=== PATIENT | male | born 1965 | race Caucasian/White ===

== ENCOUNTER 2017-03-06 16:41 | Emergency (ER) | payer BC ==
[2017-03-06] MEDS ORDERED: HYDROcodone/ACETAMIN 5-325 MG* 1 TAB PO ONE (17:50)
--- NOTE | 2017-03-06 17:57 | RAD ---
INDICATION: Proximal humerus pain after falling 8 feet COMPARISON: None. TECHNIQUE: 4 views of the left shoulder were obtained. FINDINGS: The left acromioclavicular joint is widened just under 8 mm. The distal clavicle is displaced half a bone width superior relative to the acromion. The remaining visualized bones are intact and appropriately aligned. IMPRESSION: IN THE CORRECT CLINICAL SETTING THESE RADIOGRAPHIC FINDINGS COULD BE CONSISTENT WITH A GRADE 2 AC SEPARATION INJURY. If the patient's symptoms persist, follow-up imaging is recommended.
--- NOTE | 2017-03-06 17:58 | RAD ---
INDICATION: Low back pain after falling 8 feet COMPARISON: None. TECHNIQUE: 5 views of the lumbar spine were obtained. FINDINGS: The vertebra are in normal alignment. No fracture is seen. Disc spaces appear maintained. IMPRESSION: No evidence of fracture or subluxation.
[2017-03-06 18:23] VITALS: BP 179/116
--- NOTE | 2017-03-06 18:48 | UC ---
Shoulder Pain HPI - HPI Summary HPI Summary: Fell through a week floor landed on back on left shoulder--did not hit head not LOC - History of Current Complaint Chief Complaint: UCTrauma Stated Complaint: BACK & SHOULDER INJURIES FROM FALL Time Seen by Provider: 03/06/17 16:57 Hx Obtained From: Patient Onset/Duration: Sudden Onset, Lasting Minutes - 30 mins prior to arrival Timing: Constant Severity Initially: Moderate Severity Currently: Moderate Location Of Pain: Is Discrete @ - left shoulder and back Pain Intensity: 7 Character: Aching, Stiffness Aggravating Factor(s): Movement - of left shoulder Alleviating Factor(s): Nothing Associated Signs And Symptoms: Positive: Negative Related History: Dominant Hand Right - Allergies/Home Medications Allergies/Adverse Reactions: Allergies Allergy/AdvReac Type Severity Reaction Status Date / Time No Known Allergies Allergy Verified 03/06/17 16:54 Home Medications: Home Medications Lisinopril/HCTZ 11/29.5(NF) [Zestoretic 11/29.5(NF)] 1 tab PO DAILY 03/06/17 [ History Confirmed 03/06/17] PMH/Surg Hx/FS Hx/Imm Hx Previously Healthy: No Cardiovascular History: Hypertension - Surgical History Surgical History: None - Family History Known Family History: Positive: None - Social History Occupation: Employed Full-time Lives: With Family Alcohol Use: Weekly Substance Use Type: None Smoking Status (MU): Former Smoker Review of Systems Constitutional: Negative Skin: Negative Eyes: Negative ENT: Negative Respiratory: Negative Cardiovascular: Negative Gastrointestinal: Negative Genitourinary: Negative Motor: Decreased ROM - left shoulder Neurovascular: Negative Musculoskeletal: Negative, Myalgia - muscles in low back no spine tenderness Neurological: Negative Psychological: Negative Is Patient Immunocompromised?: No All Other Systems Reviewed And Are Negative: Yes Physical Exam Triage Information Reviewed: Yes Appearance: Well-Appearing, Well-Nourished, Pain Distress - moderate Vital Signs: Initial Vital Signs Temp 98.3 F 03/06/17 16:44 Pulse 102 03/06/17 16:44 Resp 19 03/06/17 16:44 BP 177/117 03/06/17 16:44 Vital Signs Reviewed: Yes Eye Exam: Normal Eyes: Positive: Conjunctiva Clear ENT Exam: Normal ENT: Positive: Normal ENT inspection, Hearing grossly normal, Pharynx normal, TMs normal, Uvula midline. Negative: Nasal congestion, Tonsillar swelling, Tonsillar exudate, Trismus, Muffled voice, Hoarse voice, Dental tenderness, Sinus tenderness Dental Exam: Normal Neck exam: Normal Neck: Positive: Supple, Nontender, No Lymphadenopathy Respiratory Exam: Normal Respiratory: Positive: Chest non-tender, Lungs clear, Normal breath sounds, No respiratory distress, No accessory muscle use, Other: - no chest wall pain with palpation or compression Cardiovascular Exam: Normal Cardiovascular: Positive: RRR, No Murmur, Pulses Normal, Brisk Capillary Refill Abdominal Exam: Normal Abdomen Description: Positive: Nontender, No Organomegaly, Soft. Negative: CVA Tenderness (R), CVA Tenderness (L), Distended, Guarding Bowel Sounds: Positive: Present Musculoskeletal Exam: Other Musculoskeletal: Positive: No Edema, Strength Limited @ - left arm/shoulder, ROM Limited @ - left shoulder Neurological Exam: Normal Neurological: Positive: Alert, Muscle Tone Normal, Fatigued Psychological Exam: Normal Skin Exam: Normal Diagnostics - Laboratory Diagnostic Studies Completed/Ordered: UA-+2 blood - Radiology No standard instances Xray Interpretation: Positive (See Comments) - Lumbar spine-wnl, left shoulder Grade 2 AC seperation Radiology Interpretation Completed By: Radiologist Re-Evaluation - Re-Evaluation First Eval Change: Improved - good pain relief HR down BP Stable felling better-no c/o dizziness tolerating clear liquids well Shoulder Course/Dx - Course Assessment/Plan: pain control sling follow shoulder with Dr. Felton and follow renal contusion and elevated Blood pressure with Dr. Mitchell - Differential Dx/Diagnosis Provider Diagnoses: Left shoulder AC Seperation, Reanal Contusion, Hypertension in poor control Discharge - Discharge Plan Condition: Stable Disposition: HOME Prescriptions: Cyclobenzaprine TAB* [Flexeril 10 MG TAB*] 10 mg PO TID PRN #15 tab PRN Reason: muscle spasm Hydrocodone-Acetaminophen [Hydrocodone/Acetaminophen 5-325 mg] 1 - 2 tab PO Q6H PRN #20 tab MDD 6 PRN Reason: Pain - Moderate To Severe Ibuprofen TAB* [Motrin TAB* 600 MG] 600 mg PO Q6H PRN #40 tab PRN Reason: pain Patient Education Materials: Acromioclavicular Separation (ED), Hematuria (ED) , Muscle Spasm (ED) Forms: *Work Release Referrals: Danilo Felton MD [Medical Doctor] - 2 Days [facility],Myles, MD [Primary Care Provider] - 2 Days ()
== END 2017-03-06 18:49 | disposition home or self-care (01) ==
LOC: UCEAST 16:41
DX: S43.102A Unspecified dislocation of left acromioclavicular joint, initial encounter (principal); S37.019A Minor contusion of unspecified kidney, initial encounter; W13.3XXA Fall through floor, initial encounter; Y93.9 Activity, unspecified; Y92.9 Unspecified place or not applicable; I10 Essential (primary) hypertension; R31.9 Hematuria, unspecified; Z87.891 Personal history of nicotine dependence
CPT/HCPCS: 72110; 81003; 99202; G0463